=== PATIENT | male | born 1990 | race Caucasian/White ===

== ENCOUNTER 2018-05-27 20:28 | Emergency (ER) | payer OTHER ==
[~2018-05-27] VITALS: Ht 177.8 cm; Wt 79.4 kg
[2018-05-27 20:35] VITALS: Ht 177.8 cm; Wt 79.4 kg
[2018-05-27 21:53] VITALS: BP 132/89
== END 2018-05-27 21:53 | disposition home or self-care (01) ==
LOC: ED 20:28
DX: R00.2 Palpitations (principal); R07.89 Other chest pain
CPT/HCPCS: Q0092